=== PATIENT | male | born 1990 | race Caucasian/White ===

== ENCOUNTER 2017-09-15 09:59 | Emergency (ER) | payer BC ==
[~2017-09-15] VITALS: Ht 167.6 cm; Wt 50.0 kg
[~2017-09-15 09:59] MED LIST: Z.0.NO CURRENT MEDS
[2017-09-15 10:23] VITALS: BP 119/70; PULSE 95; RESP 17; TEMP 98.2; O2SAT 96
--- NOTE | 2017-09-15 11:37 | RADRPT ---
EXAM DATE/TIME: 09/15/2017 11:31 [place] COMPARISON: No previous studies available for comparison. INDICATIONS : Patient states shortness of breath. MEDICAL HISTORY : None. SURGICAL HISTORY : None. ENCOUNTER: Initial ACUITY: 2 days PAIN SCORE: 0/10 LOCATION: Bilateral chest FINDINGS: PA and lateral views of the chest demonstrate the lungs to be symmetrically aerated without evidence of mass, infiltrate or effusion. The cardiomediastinal contours are unremarkable. Osseous structure s are intact. CONCLUSION: No acute disease. Segundo Oleary MD on September 15, 2017 at 11:34 Board Certified Radiologist. This report was verified electronically.
[2017-09-15 12:43] LABS: AUTOMATED NEUTROPHIL # 13.4 TH/MM3 (1.8-7.7); BASOPHIL % 0.1 % (0.0-2.0); EOSINOPHIL % 0.1 % (0.0-4.0); HEMATOCRIT 47.5 % (39.0-51.0); HEMOGLOBIN 16.1 GM/DL (13.0-17.0); LYMPH % 3.1 % (9.0-44.0); LYMPHOCYTE # 0.5 TH/MM3 (1.0-4.8); MEAN CELL VOLUME 87.2 FL (80.0-100.0); MEAN CORPUSCULAR HEMOGLOBIN 29.6 PG (27.0-34.0); MEAN PLATELET VOLUME 9.9 FL (7.0-11.0); MONO % 3.6 % (0.0-8.0); MONOCYTE # 0.5 TH/MM3 (0-0.9); NEUT % 93.1 % (16.0-70.0); PLATELET COUNT 185 TH/MM3 (150-450); RED BLOOD COUNT 5.45 MIL/MM3 (4.50-5.90); WHITE BLOOD COUNT 14.3 TH/MM3 (4.0-11.0)
--- NOTE | 2017-09-15 12:43 | PD ---
HPI Chief Complaint: Chest Pain Time Seen by Provider: 12:33 Travel History International Travel<30 days: No Contact w/Intl Traveler<30days: No Traveled to known affect area: No History of Present Illness HPI 27yo M with no PMH presents to the ED with c/o midsternal chest pain since yesterday morning. Said it is pressure like, intermittent and associated with nausea and vomiting. Pt said pain is better after vomiting and sometimes have cough before vomiting. Denies any fever, sob, abdominal pain, focal weakness or numbness, family history of sudden cardiac deaths. Denies any drug use or cigarette smoking. Said he smokes cigar once in a while. Currently denies any chest pain or nausea. PFSH Social History Tobacco Use: No Allergies-Medications (Allergen,Severity, Reaction): Coded Allergies: No Known Allergies (Unverified Adverse Reaction, Unknown, 09/15/17) Reported Meds & Prescriptions Reported Meds & Active Scripts Active Protonix (Pantoprazole Sodium) 20 Mg Tab 20 Mg PO DAILY Review of Systems Except as stated in HPI: all other systems reviewed are Neg Physical Exam Narrative GENERAL: 27yo M not in distress. SKIN: Focused skin assessment warm/dry. HEAD: Atraumatic. Normocephalic. EYES: Pupils equal and round. No scleral icterus. No injection or drainage. ENT: Throat: Clear. Uvula midline. NECK: Trachea midline. No JVD. CARDIOVASCULAR: Regular rate and rhythm. No murmur appreciated. RESPIRATORY: No accessory muscle use. Clear to auscultation. Breath sounds equal bilaterally. CHEST WALL: No ttp. No rash. GASTROINTESTINAL: Abdomen soft, non-tender, nondistended. MUSCULOSKELETAL: No obvious deformities. No clubbing. No cyanosis. No edema. NEUROLOGICAL: Awake and alert. No obvious cranial nerve deficits. Motor grossly within normal limits. Normal speech. PSYCHIATRIC: Appropriate mood and affect; insight and judgment normal. Data Data Last Documented VS Vital Signs Date Time Temp Pulse Resp B/P (MAP) Pulse Ox O2 Delivery O2 Flow Rate FiO2 09/15/17 10:23 98.2 95 17 119/70 (86) 96 Orders Orders Electrocardiogram (09/15/17 ) Complete Blood Count With Diff (09/15/17 11:07) Comprehensive Metabolic Panel (09/15/17 11:07) Lipase (09/15/17 11:07) Chest, Pa & Lat (09/15/17 ) Pantoprazole (Protonix) (09/15/17 12:45) Troponin I (09/15/17 12:44) Ed Discharge Order (09/15/17 15:17) Labs Laboratory Tests Test 09/15/17 12:00 09/15/17 12:25 Blood Urea Nitrogen 24 MG/DL Creatinine 1.02 MG/DL Random Glucose 78 MG/DL Total Protein 8.2 GM/DL Albumin 4.6 GM/DL Calcium Level 9.0 MG/DL Alkaline Phosphatase 48 U/L Aspartate Amino Transf (AST/SGOT) 19 U/L Alanine Aminotransferase (ALT/SGPT) 21 U/L Total Bilirubin 0.7 MG/DL Sodium Level 139 MEQ/L Potassium Level 3.6 MEQ/L Chloride Level 104 MEQ/L Carbon Dioxide Level 25.7 MEQ/L Anion Gap 9 MEQ/L Estimat Glomerular Filtration Rate 86 ML/MIN Troponin I LESS THAN 0.02 NG/ML Lipase 56 U/L White Blood Count 14.3 TH/MM3 Red Blood Count 5.45 MIL/MM3 Hemoglobin 16.1 GM/DL Hematocrit 47.5 % Mean Corpuscular Volume 87.2 FL Mean Corpuscular Hemoglobin 29.6 PG Mean Corpuscular Hemoglobin Concent 34.0 % Red Cell Distribution Width 13.0 % Platelet Count 185 TH/MM3 Mean Platelet Volume 9.9 FL Neutrophils (%) (Auto) 93.1 % Lymphocytes (%) (Auto) 3.1 % Monocytes (%) (Auto) 3.6 % Eosinophils (%) (Auto) 0.1 % Basophils (%) (Auto) 0.1 % Neutrophils # (Auto) 13.4 TH/MM3 Lymphocytes # (Auto) 0.5 TH/MM3 Monocytes # (Auto) 0.5 TH/MM3 Eosinophils # (Auto) 0.0 TH/MM3 Basophils # (Auto) 0.0 TH/MM3 CBC Comment DIFF FINAL Differential Comment MDM Medical Decision Making Medical Screen Exam Complete: Yes Emergency Medical Condition: Yes Interpretation(s) EKG: NSR 94bpm. Normal axis. ST depression II, III, aVF. No ST segment elevation. Differential Diagnosis Atypical chest pain vs. GERD vs. gastritis vs. viral syndrome vs. musculoskeletal pain Narrative Course 27yo M with atypical chest pain. Pt has no risk factors. Denies any PE risk factors including history of PE/DVT, hemoptysis, recent travel or surgery. Labs reviewed, mild leukocytosis at 14.3. Troponin negative. BUN mildly elevated at 24. Pt given protonix and felt better. Denies any chest pain or sob. Do not think this chest pain is cardiac. Return precautions given. Diagnosis Primary Impression: Atypical chest pain Patient Instructions: General Instructions Departure Forms: Tests/Procedures Additional Instructions: Please follow up with your primary care physician in 2-3 days. Return to the ED if symptoms worsen. Med/Other Pt SpecificInfo: Prescription(s) given Scripts Pantoprazole (Protonix) 20 Mg Tab 20 MG PO DAILY for Reflux, #15 TAB 0 Refills Prov: Ava Davenport DO 09/15/17 Disposition: 01 DISCHARGE HOME Condition: Stable Ava Davenport DO Sep 15, 2017 12:43
[2017-09-15] MEDS ORDERED: PANTOPRAZOLE SOD 40 MG DELAYED RELEASE TAB PO ONE (12:45)
[2017-09-15 13:07] LABS: ALBUMIN 4.6 GM/DL (3.4-5.0); ALT (GPT) 21 U/L (12-78); AST (GOT) 19 U/L (15-37); BICARBONATE 25.7 MEQ/L (21.0-32.0); BLOOD UREA NITROGEN 24 MG/DL (7-18); CHLORIDE 104 MEQ/L (98-107); CREATININE 1.02 MG/DL (0.60-1.30); GLOMERULAR FILTRATION RATE 86 ML/MIN (>89); GLUCOSE,RANDOM 78 MG/DL (74-106); SODIUM (NA) 139 MEQ/L (136-145)
[2017-09-15 13:09] LABS: ALKALINE PHOSPHATASE 48 U/L (45-117); TOTAL BILIRUBIN ADULT 0.7 MG/DL (0.2-1.0); TOTAL PROTEIN 8.2 GM/DL (6.4-8.2)
[2017-09-15] MEDS ORDERED: PANT20 PO (15:14)
--- NOTE | 2017-09-16 16:16 | EKG ---
Date Performed: 09/15/2017 Time Performed: 10:32:21 PTAGE: 27 years EKG: Sinus rhythm WITH MARKED SINUS ARRHYTHMIA WITH SHORT MT INTERVAL NONSPECIFIC T-WAVE ABNORMALITY BORDERLINE ECG NO PREVIOUS TRACING DOCTOR: Fabricio Centeno Interpretating Date/Time 09/16/2017 16:14:56
== END 2017-09-15 16:03 | disposition home or self-care (01) ==
LOC: NED 09:59 → NEPD 16:03
DX: R07.89 Other chest pain (principal); R94.31 Abnormal electrocardiogram [ECG] [EKG]
CPT/HCPCS: 71046; 80053; 83690; 84484; 85025; 93005; 99285